=== PATIENT | male | born 1955 | race Caucasian/White ===

== ENCOUNTER 2020-06-05 16:32 | Observation (INO) ==
[2020-06-05 18:21] LABS: Basophils # 0.1 K/mcL (0.0-0.2); Basophils % 0.4 %; Eosinophils # 0.1 K/mcL (0.0-0.6); Eosinophils % 0.9 %; Hematocrit 50.4 % (37.5-50.1); Hemoglobin 16.3 g/dL (12.9-16.9); Immature Granulocytes % 0.8 % (0-4); Lymphocytes # 1.8 K/mcL (0.6-4.6); Lymphocytes % 12.9 %; Mean Corpuscular HGB Conc 32.3 g/dL (31.6-35.5); Mean Corpuscular Hemoglobin 28.8 pg (28.0-33.3); Mean Corpuscular Volume 89.2 fL (83.0-100.0); Mean Platelet Volume 10.4 fL (9.4-12.4); Monocytes # 1.5 K/mcL (0.0-1.3); Monocytes % 10.3 %; Neutrophils # 10.7 K/mcL (1.6-8.9); Platelet Count 228 K/mcL (140-400); Red Blood Count 5.65 M/mcL (4.19-5.50); Red Cell Distribution Width 13.2 % (11.5-14.5); Segmented Neutrophils % 74.7 %; White Blood Count 14.3 K/mcL (4.3-11.1)
[2020-06-05 18:33] LABS: Bacteria,Urine Few per hpf (None-Few); Bilirubin,Urine Negative (Negative); Blood,Urine Moderate (Negative); Clarity,Urine Clear (Clear); Color,Urine Light-Orange (Yellow); Glucose,Urine (UA) >=1000 mg/dL (Normal); Ketones,Urine Trace mg/dL (Negative); Leukocyte Esterase,Urine Negative (Negative); Mucus,Urine Few per lpf (None-Few); Nitrite,Urine Negative (Negative); PH,Urine 5.5 pH Units (5.0-8.0); Protein,Urine 70 mg/dL (Neg-Trace); RBC,Urine 15-30 per hpf (0-3); Specific Gravity,Urine > 1.030 (1.010-1.025); Squamous Epithelial Cell,Urine Few per hpf (None-Few); Urobilinogen,Urine Normal (Normal); WBC,Urine 0-3 per hpf (0-3)
[2020-06-05 18:46] LABS: Alanine Aminotransferase 6 Units/L (7-52); Albumin 4.7 g/dL (3.5-5.7); Albumin/Globulin Ratio 1.5 (1.1-2.2); Alkaline Phosphatase 62 Units/L (34-104); Aspartate Amino Transferase 8 Units/L (13-39); BUN/Creatinine Ratio 19 (6-26); Bilirubin,Direct 0.3 mg/dL (0.0-0.2); Bilirubin,Indirect 1.3 mg/dL (0.0-1.0); Bilirubin,Total 1.6 mg/dL (0.3-1.0); Blood Urea Nitrogen 23 mg/dL (8-23); Carbon Dioxide 25 mEq/L (23-29); Chloride 98 mEq/L (98-107); Globulin 3.1 g/dL (2.4-3.5); Glucose 313 mg/dL (70-105); Lipase 122 Units/L (11-82); Osmolality,Calculated 292 (280-300); Potassium 4.5 mEq/L (3.5-5.1); Sodium 133 mEq/L (136-145); Total Protein 7.8 g/dL (6.4-8.9); eGFR For African Americans > 60 (> 60); eGFR For Non-African Americans > 60 (> 60)
[2020-06-05] MEDS ORDERED: Isovue-370 500 ML BOTTLE IVP ONE (20:57)
[2020-06-05] MEDS ORDERED: 0.9 % Sodium Chloride 1,000 ML IVC ONE (21:04)
[2020-06-05] MEDS ORDERED: Morphine Sulfate 2 MG/ML SYRINGE IVP ONE (21:06)
[2020-06-05] MEDS ORDERED: Ondansetron 4 MG/2 ML VIAL IVP ONE (21:06)
[2020-06-06] MEDS ORDERED: Morphine Sulfate 2 MG/ML SYRINGE IVP ONE (00:32)
[2020-06-06] MEDS: Ringers Solution, Lactated 1,000 ML IVC SCH ×5 (01:23→21:48)
[2020-06-06] MEDS ORDERED: Naloxone 0.4 MG/ML INJ IVP PRN (03:21)
[2020-06-06] MEDS: *HR* HYDROmorphone (PF) 1 MG/ML SYRINGE IVP PRN ×4 (04:00→21:47)
[2020-06-06] MEDS ORDERED: Dextrose Gel 15 GM/37.5 ML TUBE PO PRN ×2 (04:11)
[2020-06-06] MEDS ORDERED: D5% in Water 1,000 ML IVC PRN (04:11)
[2020-06-06] MEDS ORDERED: *HR* Dextrose 50 % in Water (Vial) 50 ML VIAL IVP PRN (04:11)
[2020-06-06] MEDS: Insulin LISPRO 300 UNITS/3 ML VIAL SQ SCH ×4 (04:55→17:58)
[2020-06-06 05:07] LABS: INR 1.4; Prothrombin Time 15.9 Seconds (9.4-12.1)
[2020-06-06 05:10] LABS: Mean Corpuscular Hemoglobin 28.9 pg (28.0-33.3); Mean Corpuscular Volume 90.2 fL (83.0-100.0); Mean Platelet Volume 10.6 fL (9.4-12.4); Platelet Count 199 K/mcL (140-400); Red Blood Count 4.88 M/mcL (4.19-5.50); Red Cell Distribution Width 13.2 % (11.5-14.5); White Blood Count 11.3 K/mcL (4.3-11.1)
[2020-06-06 05:11] LABS: Hemoglobin 14.1 g/dL (12.9-16.9)
[2020-06-06 05:25] LABS: Alanine Aminotransferase 4 Units/L (7-52); Albumin 3.6 g/dL (3.5-5.7); Albumin/Globulin Ratio 1.2 (1.1-2.2); Alkaline Phosphatase 43 Units/L (34-104); Aspartate Amino Transferase 5 Units/L (13-39); BUN/Creatinine Ratio 24 (6-26); Bilirubin,Direct 0.2 mg/dL (0.0-0.2); Bilirubin,Indirect 0.9 mg/dL (0.0-1.0); Bilirubin,Total 1.1 mg/dL (0.3-1.0); Blood Urea Nitrogen 22 mg/dL (8-23); Calcium 8.7 mg/dL (8.6-10.3); Carbon Dioxide 20 mEq/L (23-29); Chloride 102 mEq/L (98-107); Chol/HDL Ratio 3.9 (0-4.9); Cholesterol 116 mg/dL (< 200); Globulin 2.9 g/dL (2.4-3.5); Glucose 271 mg/dL (70-105); HDL Cholesterol 30 mg/dL (40-59); LDL Cholesterol,Calculated 59 mg/dL (< 100); Magnesium 1.6 mg/dL (1.6-2.6); Osmolality,Calculated 289 (280-300); Phosphorous 2.5 mg/dL (2.7-4.5); Potassium 4.2 mEq/L (3.5-5.1); Sodium 133 mEq/L (136-145); Total Protein 6.5 g/dL (6.4-8.9); Triglycerides 134 mg/dL (< 150); eGFR For African Americans > 60 (> 60); eGFR For Non-African Americans > 60 (> 60)
[2020-06-06] MEDS: Ondansetron ODT 4 MG TAB.RAPDIS SL PRN (11:33)
[2020-06-06 13:06] LABS: Estimated Average Glucose 298 mg/dl
[2020-06-07] MEDS: Ringers Solution, Lactated 1,000 ML IVC SCH ×2 (03:14→07:53)
[2020-06-07] MEDS: *HR* HYDROmorphone (PF) 1 MG/ML SYRINGE IVP PRN (03:14)
[2020-06-07 05:59] LABS: Basophils % 0.3 %; Eosinophils # 0.2 K/mcL (0.0-0.6); Hematocrit 38.9 % (37.5-50.1); Immature Granulocytes % 0.6 % (0-4); Lymphocytes # 1.4 K/mcL (0.6-4.6); Lymphocytes % 11.7 %; Mean Corpuscular HGB Conc 31.9 g/dL (31.6-35.5); Mean Corpuscular Hemoglobin 28.8 pg (28.0-33.3); Mean Corpuscular Volume 90.3 fL (83.0-100.0); Mean Platelet Volume 11.4 fL (9.4-12.4); Monocytes # 1.3 K/mcL (0.0-1.3); Monocytes % 11.3 %; Neutrophils # 8.6 K/mcL (1.6-8.9); Platelet Count 155 K/mcL (140-400); Red Blood Count 4.31 M/mcL (4.19-5.50); Red Cell Distribution Width 13.2 % (11.5-14.5); Segmented Neutrophils % 74.1 %; White Blood Count 11.5 K/mcL (4.3-11.1)
[2020-06-07 06:03] LABS: Hemoglobin 12.4 g/dL (12.9-16.9)
[2020-06-07 06:13] LABS: BUN/Creatinine Ratio 21 (6-26); Blood Urea Nitrogen 18 mg/dL (8-23); Calcium 8.6 mg/dL (8.6-10.3); Carbon Dioxide 22 mEq/L (23-29); Chloride 101 mEq/L (98-107); Glucose 205 mg/dL (70-105); Magnesium 1.3 mg/dL (1.6-2.6); Osmolality,Calculated 282 (280-300); Phosphorous 1.9 mg/dL (2.7-4.5); Potassium 4.3 mEq/L (3.5-5.1); Sodium 132 mEq/L (136-145); eGFR For African Americans > 60 (> 60); eGFR For Non-African Americans > 60 (> 60)
[2020-06-07] MEDS: Insulin LISPRO 300 UNITS/3 ML VIAL SQ SCH ×3 (07:56→16:52)
[2020-06-07] MEDS ORDERED: Loratadine 10 MG TABLET PO PRN (08:24)
[2020-06-07] MEDS: *HR* OxyCODONE/APAP 5/325 TABLET PO PRN ×2 (12:34→19:48)
[2020-06-07] MEDS: Aspirin Enteric Coated 81 MG Tablet PO SCH (12:35)
[2020-06-07] MEDS: Apixaban 5 MG TABLET PO SCH ×2 (12:35→19:50)
[2020-06-07] MEDS: Fenofibrate 54 MG TABLET PO SCH (12:36)
[2020-06-07] MEDS: lisinopriL 10 MG TABLET PO SCH (12:36)
[2020-06-07] MEDS: Ondansetron ODT 4 MG TAB.RAPDIS SL PRN (12:37)
[2020-06-07] MEDS: Nicotine 21 MG PATCH.TD24 TD SCH (16:53)
[2020-06-08] MEDS: Nicotine 21 MG PATCH.TD24 TD SCH (07:33)
[2020-06-08] MEDS: *HR* OxyCODONE/APAP 5/325 TABLET PO PRN (07:34)
[2020-06-08] MEDS: Fenofibrate 54 MG TABLET PO SCH (07:34)
[2020-06-08] MEDS: Apixaban 5 MG TABLET PO SCH (07:34)
[2020-06-08] MEDS: Aspirin Enteric Coated 81 MG Tablet PO SCH (07:34)
[2020-06-08] MEDS: lisinopriL 10 MG TABLET PO SCH (07:35)
[2020-06-08 08:08] VITALS: BP 120/73
[2020-06-08] MEDS: Insulin LISPRO 300 UNITS/3 ML VIAL SQ SCH (08:24)
[2020-06-08 08:52] LABS: BUN/Creatinine Ratio 18 (6-26); Blood Urea Nitrogen 14 mg/dL (8-23); Calcium 8.6 mg/dL (8.6-10.3); Carbon Dioxide 20 mEq/L (23-29); Chloride 100 mEq/L (98-107); Glucose 203 mg/dL (70-105); Magnesium 1.6 mg/dL (1.6-2.6); Osmolality,Calculated 282 (280-300); Phosphorous 1.9 mg/dL (2.7-4.5); Potassium 4.1 mEq/L (3.5-5.1); Sodium 133 mEq/L (136-145); eGFR For African Americans > 60 (> 60); eGFR For Non-African Americans > 60 (> 60)
[2020-06-08 08:54] LABS: Basophils # 0.1 K/mcL (0.0-0.2); Basophils % 0.6 %; Eosinophils # 0.1 K/mcL (0.0-0.6); Eosinophils % 1.4 %; Hematocrit 40.4 % (37.5-50.1); Hemoglobin 12.8 g/dL (12.9-16.9); Immature Granulocytes % 0.5 % (0-4); Lymphocytes # 0.9 K/mcL (0.6-4.6); Lymphocytes % 9.1 %; Mean Corpuscular HGB Conc 31.7 g/dL (31.6-35.5); Mean Corpuscular Hemoglobin 27.9 pg (28.0-33.3); Mean Corpuscular Volume 88.2 fL (83.0-100.0); Mean Platelet Volume 11.1 fL (9.4-12.4); Monocytes # 1.1 K/mcL (0.0-1.3); Platelet Count 176 K/mcL (140-400); Red Blood Count 4.58 M/mcL (4.19-5.50); Red Cell Distribution Width 13.1 % (11.5-14.5); Segmented Neutrophils % 77.4 %; White Blood Count 10.3 K/mcL (4.3-11.1)
== END 2020-06-08 11:30 | disposition home or self-care (01) ==
LOC: EMEROOARM 16:32 → 3ANU 16:32
PROVIDERS: ADMIT Internal Medicine; ATTEND Internal Medicine

== ENCOUNTER 2021-01-09 10:12 | Inpatient (IN) ==
[2021-01-09] MEDS ORDERED: CeFAZolin Syr 2,000MG/20 ML 2,000 MG/20 ML SYRINGE IVPB ONE (10:36)
[2021-01-09] MEDS ORDERED: Vancomycin 1,250 MG/262.5 ML IV.SOLN IVPB ONE ×2 (10:36→23:30)
[2021-01-09] MEDS ORDERED: *HR* Propofol 200 MG/20 ML VIAL IVP ONE ×2 (10:41→14:24)
[2021-01-09] MEDS ORDERED: 0.9 % Sodium Chloride 300 ML ONE (10:43)
[2021-01-09] MEDS ORDERED: *HR* Midazolam HCl 2 MG/2 ML VIAL ONE (10:44)
[2021-01-09] MEDS ORDERED: *HR* FentaNYL (PF) 100 MCG/2 ML VIAL ONE ×2 (10:44→14:32)
[2021-01-09] MEDS ORDERED: Ringers Solution, Lactated 1,000 ML IVC SCH (10:45)
[2021-01-09] MEDS ORDERED: Lidocaine -MPF 2% 2 ML VIAL ONE (10:45)
[2021-01-09] MEDS ORDERED: *HR* Succinylcholine 200 MG/10 ML VIAL IVP ONE (10:45)
[2021-01-09] MEDS ORDERED: Ondansetron 4 MG/2 ML VIAL ONE (10:45)
[2021-01-09] MEDS ORDERED: Protamine Sulfate 50 MG/5 ML VIAL IVP ONE (10:46)
[2021-01-09] MEDS ORDERED: Bupivacaine-MPF 0.25% 10 ML VIAL ONE (10:46)
[2021-01-09] MEDS ORDERED: Lidocaine HCL 4 ML Topical Solution (Laryng-O-Jet Kit Sterile Pak) TP ONE (10:47)
[2021-01-09] MEDS ORDERED: Heparin 1,000 UNITS/500 mL 1,000 ML ONE (10:48)
[2021-01-09] MEDS ORDERED: *HR* Remifentanil 2 MG VIAL IVP ONE (10:53)
[2021-01-09] MEDS ORDERED: EPHEDrine 50 MG/ML VIAL ONE (10:58)
[2021-01-09] MEDS ORDERED: Aspirin 81 MG TAB.CHEW PO ONE (11:00)
[2021-01-09] MEDS ORDERED: Ondansetron 4 MG/2 ML VIAL IVP PRN ×2 (11:12→17:01)
[2021-01-09] MEDS ORDERED: Albuterol 2.5 MG/3 ML NEBULIZER IH PRN (11:12)
[2021-01-09] MEDS ORDERED: *HR* HYDROmorphone PF 0.5 MG/0.5 ML SYRINGE IVP PRN (11:12)
[2021-01-09] MEDS ORDERED: Acetaminophen IV 1,000 MG/100 ML BAG IVPB ONE (11:12)
[2021-01-09] MEDS ORDERED: *HR* OxyCODONE Immed Rel 5 MG TABLET PO PRN (11:12)
[2021-01-09] MEDS ORDERED: Heparin 1,000 UNITS/500 mL 0 ML ONE (11:23)
[2021-01-09] MEDS ORDERED: Vancomycin 1,000 MG, Sodium Chloride IRRigation 1,000 ML IR ONE (12:15)
[2021-01-09 12:37] LABS: ABG Base Excess -2 mEq/L (-2 to 3); ABG Chloride 105 mEq/L (98-107); ABG Glucose 94 mg/dL (60-95); ABG HCO3 23 mEq/L (21-27); ABG Ionized Calcium 1.09 mmol/L (1.15-1.35); ABG Oxygen Saturation 100 % (95-98); ABG PCO2 40 mmHg (35-45); ABG PH 7.37 pH Units (7.32-7.45); ABG PO2 522 mmHg (85-104); ABG TCO2 24 mEq/L (20-26)
[2021-01-09] MEDS ORDERED: Albumin Human 5% 12.5 GM/250 ML IV.SOLN ONE (12:54)
[2021-01-09] MEDS ORDERED: *HR* Heparin 5,000 UNIT/ML VIAL ONE (13:24)
[2021-01-09] MEDS ORDERED: 0.9 % Sodium Chloride 1,000 ML IVC SCH (17:01)
[2021-01-09] MEDS ORDERED: Acetaminophen 325 MG TABLET PO PRN (17:01)
[2021-01-09] MEDS ORDERED: Naloxone 0.4 MG/ML INJ IVP PRN (17:01)
[2021-01-09] MEDS ORDERED: [UNRECOGNIZED DRUG - REMARK] PO PRN (17:12)
[2021-01-09] MEDS: *HR* HYDROcodone/Acet 5/325 mg TABLET PO PRN (17:30)
[2021-01-09] MEDS: *HR* Metoprolol 5 MG/5 ML VIAL IVP SCH (17:30)
[2021-01-09] MEDS: *HR* OxyCODONE Immed Rel 5 MG TABLET PO PRN (19:02)
[2021-01-09] MEDS: CeFAZolin 2 GM/120 ML BAG IVPB SCH (20:00)
[2021-01-09] MEDS: *HR* Labetalol 20 MG/4 ML SYRINGE IVP PRN (20:13)
[2021-01-10] MEDS: *HR* HYDROcodone/Acet 5/325 mg TABLET PO PRN ×4 (00:28→19:33)
[2021-01-10] MEDS: *HR* Metoprolol 5 MG/5 ML VIAL IVP SCH ×2 (00:28→06:16)
[2021-01-10] MEDS: *HR* OxyCODONE Immed Rel 5 MG TABLET PO PRN ×4 (01:23→21:08)
[2021-01-10 03:57] LABS: Basophils % 0.3 %; Hematocrit 31.1 % (37.5-50.1); Hemoglobin 9.5 g/dL (12.9-16.9); Immature Granulocytes % 0.5 % (0-4); Lymphocytes # 1.5 K/mcL (0.6-4.6); Lymphocytes % 12.2 %; Mean Corpuscular HGB Conc 30.5 g/dL (31.6-35.5); Mean Corpuscular Hemoglobin 25.1 pg (28.0-33.3); Mean Corpuscular Volume 82.3 fL (83.0-100.0); Monocytes # 1.1 K/mcL (0.0-1.3); Monocytes % 9.1 %; Neutrophils # 9.2 K/mcL (1.6-8.9); Platelet Count 323 K/mcL (140-400); Red Blood Count 3.78 M/mcL (4.19-5.50); Red Cell Distribution Width 18.4 % (11.5-14.5); Segmented Neutrophils % 77.9 %; White Blood Count 11.9 K/mcL (4.3-11.1)
[2021-01-10] MEDS: CeFAZolin 2 GM/120 ML BAG IVPB SCH (03:57)
[2021-01-10 04:17] LABS: BUN/Creatinine Ratio 24 (6-26); Blood Urea Nitrogen 17 mg/dL (8-23); Calcium 8.4 mg/dL (8.6-10.3); Carbon Dioxide 23 mEq/L (23-29); Chloride 104 mEq/L (98-107); Glucose 192 mg/dL (70-105); Osmolality,Calculated 287 (280-300); Sodium 135 mEq/L (136-145); eGFR For African Americans > 60 (> 60); eGFR For Non-African Americans > 60 (> 60)
[2021-01-10] MEDS: *HR* Labetalol 20 MG/4 ML SYRINGE IVP PRN ×2 (04:25→11:49)
[2021-01-10] MEDS ORDERED: *HR* Heparin 5,000 UNIT/ML VIAL SQ SCH (06:00)
[2021-01-10] MEDS: *HR* Heparin 5,000 UNIT/ML VIAL SQ SCH ×2 (06:16→16:49)
[2021-01-10] MEDS: lisinopriL 10 MG TABLET PO SCH (07:30)
[2021-01-10] MEDS: Aspirin Enteric Coated 81 MG Tablet PO SCH (07:30)
[2021-01-10] MEDS: Insulin LISPRO 300 UNITS/3 ML VIAL SUBQ SCH ×3 (11:45→21:08)
[2021-01-10] MEDS: ALPRAZolam 0.25 MG TABLET PO PRN (21:08)
[2021-01-11] MEDS: *HR* HYDROcodone/Acet 5/325 mg TABLET PO PRN ×4 (01:51→23:30)
[2021-01-11] MEDS: *HR* OxyCODONE Immed Rel 5 MG TABLET PO PRN ×3 (03:35→20:11)
[2021-01-11] MEDS: *HR* Heparin 5,000 UNIT/ML VIAL SQ SCH ×2 (05:41→17:50)
[2021-01-11] MEDS: Aspirin Enteric Coated 81 MG Tablet PO SCH (08:53)
[2021-01-11] MEDS: Insulin LISPRO 300 UNITS/3 ML VIAL SUBQ SCH ×4 (08:56→21:31)
[2021-01-11] MEDS: lisinopriL 10 MG TABLET PO SCH (10:40)
[2021-01-11] MEDS: ALPRAZolam 0.25 MG TABLET PO PRN (20:11)
[2021-01-12] MEDS: *HR* OxyCODONE Immed Rel 5 MG TABLET PO PRN ×3 (04:44→21:16)
[2021-01-12] MEDS: *HR* Heparin 5,000 UNIT/ML VIAL SQ SCH ×2 (04:48→18:08)
[2021-01-12] MEDS: Aspirin Enteric Coated 81 MG Tablet PO SCH (08:29)
[2021-01-12] MEDS: *HR* HYDROcodone/Acet 5/325 mg TABLET PO PRN ×2 (08:29→18:15)
[2021-01-12] MEDS: lisinopriL 10 MG TABLET PO SCH (08:29)
[2021-01-12] MEDS: Insulin LISPRO 300 UNITS/3 ML VIAL SUBQ SCH ×4 (08:30→21:12)
[2021-01-12] MEDS: ALPRAZolam 0.25 MG TABLET PO PRN (21:34)
[2021-01-13] MEDS: *HR* HYDROcodone/Acet 5/325 mg TABLET PO PRN ×2 (01:33→11:29)
[2021-01-13] MEDS: *HR* OxyCODONE Immed Rel 5 MG TABLET PO PRN (05:54)
[2021-01-13] MEDS: *HR* Heparin 5,000 UNIT/ML VIAL SQ SCH (05:54)
[2021-01-13] MEDS: lisinopriL 10 MG TABLET PO SCH (07:41)
[2021-01-13] MEDS: Insulin LISPRO 300 UNITS/3 ML VIAL SUBQ SCH ×2 (07:41→11:33)
[2021-01-13] MEDS: Aspirin Enteric Coated 81 MG Tablet PO SCH (07:41)
[2021-01-13 11:26] VITALS: BP 149/90
== END 2021-01-13 15:14 | disposition home health service (06) | DRG 253 ==
LOC: SAMDAY 10:12 → 2NNU 17:00
PROVIDERS: ADMIT Surgery; ATTEND Surgery

== ENCOUNTER 2021-08-27 06:03 | Inpatient (IN) ==
[~2021-08-27 06:03] MED LIST: Vancomycin 1,000 MG, Sodium Chloride IRRigation 1,000 ML IR ONE
[2021-08-27] MEDS ORDERED: CeFAZolin Syr 2,000MG/20 ML 2,000 MG/20 ML SYRINGE IVPB ONE (06:26)
[2021-08-27] MEDS ORDERED: Vancomycin 1,250 MG/262.5 ML IV.SOLN IVPB ONE ×2 (06:26→19:00)
[2021-08-27] MEDS ORDERED: Ringers Solution, Lactated 1,000 ML IVC SCH (06:30)
[2021-08-27] MEDS ORDERED: Heparin 1,000 UNITS/500 mL 0 ML ONE (07:05)
[2021-08-27] MEDS ORDERED: Lidocaine HCL 4 ML Topical Solution (Laryng-O-Jet Kit Sterile Pak) TP ONE (07:06)
[2021-08-27] MEDS ORDERED: *HR* FentaNYL (PF) 100 MCG/2 ML VIAL ONE ×2 (07:07→09:08)
[2021-08-27] MEDS ORDERED: *HR* Propofol 200 MG/20 ML VIAL IVP ONE (07:07)
[2021-08-27] MEDS ORDERED: *HR* Rocuronium Bromide 50 MG/5 ML VIAL ONE ×3 (07:08→08:24)
[2021-08-27] MEDS ORDERED: Ondansetron 4 MG/2 ML VIAL ONE (07:08)
[2021-08-27] MEDS ORDERED: Lidocaine -MPF 2% 5 ML VIAL ONE (07:08)
[2021-08-27] MEDS ORDERED: *HR* Vasopressin 20 UNIT/ML VIAL ONE (07:12)
[2021-08-27] MEDS ORDERED: Albumin Human 5% 12.5 GM/250 ML IV.SOLN ONE (07:12)
[2021-08-27] MEDS ORDERED: *HR* Midazolam HCl 2 MG/2 ML VIAL ONE (07:22)
[2021-08-27] MEDS ORDERED: Protamine Sulfate 50 MG/5 ML VIAL IVP ONE (07:35)
[2021-08-27] MEDS ORDERED: Heparin 1,000 UNITS/500 mL 1,000 ML ONE (07:36)
[2021-08-27] MEDS ORDERED: Ondansetron 4 MG/2 ML VIAL IVP PRN ×2 (07:41→13:00)
[2021-08-27] MEDS ORDERED: *HR* HYDROmorphone PF 0.5 MG/0.5 ML SYRINGE IVP PRN (07:41)
[2021-08-27] MEDS ORDERED: *HR* OxyCODONE Immed Rel 5 MG TABLET PO PRN (07:41)
[2021-08-27] MEDS ORDERED: Vancomycin 1,000 MG, Sodium Chloride IRRigation 1,000 ML IR ONE (07:45)
[2021-08-27] MEDS ORDERED: *HR* Heparin 5,000 UNIT/ML VIAL ONE ×2 (08:22→10:33)
[2021-08-27] MEDS ORDERED: Sugammadex Sodium 200 MG/2 ML VIAL IV ONE (09:18)
[2021-08-27] MEDS ORDERED: *HR* Labetalol 20 MG/4 ML SYRINGE IVP ONE (11:07)
[2021-08-27] MEDS ORDERED: *HR* HYDROcodone/Acet 5/325 mg TABLET PO PRN (13:00)
[2021-08-27] MEDS ORDERED: *HR* Labetalol 20 MG/4 ML SYRINGE IVP PRN (13:00)
[2021-08-27] MEDS ORDERED: Naloxone 0.4 MG/ML INJ IVP PRN (13:00)
[2021-08-27] MEDS ORDERED: Acetaminophen 325 MG TABLET PO PRN (13:00)
[2021-08-27] MEDS: *HR* OxyCODONE Immed Rel 5 MG TABLET PO PRN ×2 (13:48→22:23)
[2021-08-27] MEDS: 0.9 % Sodium Chloride 1,000 ML IVC SCH (13:49)
[2021-08-27] MEDS: CeFAZolin 2 GM/120 ML BAG IVPB SCH (16:39)
[2021-08-27] MEDS: *HR* Metoprolol 5 MG/5 ML VIAL IVP SCH (18:15)
[2021-08-28] MEDS: *HR* Metoprolol 5 MG/5 ML VIAL IVP SCH ×3 (00:06→11:21)
[2021-08-28] MEDS: CeFAZolin 2 GM/120 ML BAG IVPB SCH (00:06)
[2021-08-28 04:31] LABS: Basophils # 0.1 K/mcL (0.0-0.2); Basophils % 0.4 %; Eosinophils % 0.3 %; Hematocrit 28.2 % (37.5-50.1); Immature Granulocytes % 0.4 % (0-4); Lymphocytes # 1.8 K/mcL (0.6-4.6); Lymphocytes % 15.1 %; Mean Corpuscular HGB Conc 32.6 g/dL (31.6-35.5); Mean Corpuscular Hemoglobin 30.2 pg (28.0-33.3); Mean Corpuscular Volume 92.5 fL (83.0-100.0); Mean Platelet Volume 9.4 fL (9.4-12.4); Monocytes # 1.2 K/mcL (0.0-1.3); Neutrophils # 8.8 K/mcL (1.6-8.9); Platelet Count 291 K/mcL (140-400); Red Blood Count 3.05 M/mcL (4.19-5.50); Red Cell Distribution Width 14.4 % (11.5-14.5); Segmented Neutrophils % 73.8 %
[2021-08-28 04:33] LABS: Hemoglobin 9.2 g/dL (12.9-16.9)
[2021-08-28 04:47] LABS: BUN/Creatinine Ratio 19 (6-26); Blood Urea Nitrogen 15 mg/dL (8-23); Carbon Dioxide 26 mEq/L (23-29); Chloride 105 mEq/L (98-107); Glucose 187 mg/dL (70-105); Osmolality,Calculated 290 (280-300); Potassium 3.6 mEq/L (3.5-5.1); Sodium 137 mEq/L (136-145); eGFR For African Americans > 60 (> 60); eGFR For Non-African Americans > 60 (> 60)
[2021-08-28] MEDS: *HR* OxyCODONE Immed Rel 5 MG TABLET PO PRN ×2 (05:39→11:21)
[2021-08-28 07:55] VITALS: TEMP 97.6
[2021-08-28] MEDS: 0.9 % Sodium Chloride 1,000 ML IVC SCH (08:00)
[2021-08-28] MEDS ORDERED: lisinopriL 10 MG TABLET PO SCH (09:00)
[2021-08-28] MEDS ORDERED: Aspirin Enteric Coated 81 MG Tablet PO SCH (09:00)
[2021-08-28] MEDS ORDERED: Loratadine 10 MG TABLET PO SCH (09:00)
[2021-08-28] MEDS ORDERED: *HR* Heparin 5,000 UNIT/ML VIAL SQ SCH ×2 (09:00)
[2021-08-28 11:13] VITALS: BP 158/70; O2SAT 93
[2021-08-28 11:23] VITALS: PULSE 75
== END 2021-08-28 15:38 | disposition home or self-care (01) | DRG 253 ==
LOC: SAMDAY 06:03 → 2NNU 12:52
PROVIDERS: ADMIT Surgery; ATTEND Surgery

== ENCOUNTER 2022-02-19 10:19 | Inpatient (IN) ==
[2022-02-19] MEDS ORDERED: CeFAZolin Syr 2,000MG/20 ML 2,000 MG/20 ML SYRINGE IVPB ONE (10:49)
[2022-02-19] MEDS ORDERED: Ringers Solution, Lactated 1,000 ML IVC SCH (11:00)
[2022-02-19] MEDS ORDERED: Acetaminophen IV 1,000 MG/100 ML BAG IVPB ONE (11:06)
[2022-02-19] MEDS ORDERED: Famotidine 20 MG/2 ML VIAL IVP ONE (11:06)
[2022-02-19] MEDS ORDERED: Heparin 1,000 UNITS/500 mL 500 ML ONE ×2 (11:27→12:01)
[2022-02-19] MEDS ORDERED: Bupivacaine-MPF 0.25% 10 ML VIAL ONE (11:27)
[2022-02-19] MEDS ORDERED: Vancomycin 1,000 MG, Sodium Chloride IRRigation 1,000 ML IR ONE (11:55)
[2022-02-19] MEDS ORDERED: Vancomycin 1,250 MG/262.5 ML IV.SOLN IVPB ONE (12:00)
[2022-02-19] MEDS ORDERED: *HR* FentaNYL (PF) 100 MCG/2 ML VIAL ONE (12:53)
[2022-02-19] MEDS ORDERED: *HR* Rocuronium Bromide 50 MG/5 ML VIAL ONE (15:19)
[2022-02-19] MEDS ORDERED: Sugammadex Sodium 200 MG/2 ML VIAL IV ONE (16:09)
[2022-02-19] MEDS ORDERED: Lidocaine -MPF 2% 5 ML VIAL ONE (16:13)
[2022-02-19] MEDS ORDERED: *HR* HYDROMORPHONE 2 MG/ML VIAL ONE (16:14)
[2022-02-19] MEDS ORDERED: *HR* Dextrose 50 % in Water (Syg) 50 ML SYRINGE IVP PRN (18:03)
[2022-02-19] MEDS ORDERED: Nystatin POWDER 30 GM BOTTLE TP PRN (18:03)
[2022-02-19] MEDS ORDERED: diazePAM 5 MG TABLET PO PRN (18:03)
[2022-02-19] MEDS ORDERED: Ondansetron 4 MG/2 ML VIAL IVP PRN (18:03)
[2022-02-19] MEDS ORDERED: Naloxone 0.4 MG/ML INJ IVP PRN (18:03)
[2022-02-19] MEDS ORDERED: D5% in Water 1,000 ML IVC PRN (18:03)
[2022-02-19] MEDS ORDERED: Acetaminophen 325 MG TABLET PO PRN (18:03)
[2022-02-19] MEDS ORDERED: *HR* Labetalol 20 MG/4 ML SYRINGE IVP PRN (18:03)
[2022-02-19] MEDS ORDERED: Dextrose Gel 15 GM/37.5 ML TUBE PO PRN ×2 (18:03)
[2022-02-19] MEDS ORDERED: 0.9 % Sodium Chloride 1,000 ML IVC SCH (18:03)
[2022-02-19] MEDS: *HR* Metoprolol 5 MG/5 ML VIAL IVP SCH ×2 (18:31→23:26)
[2022-02-19] MEDS: CeFAZolin 2 GM/120 ML BAG IVPB SCH (19:20)
[2022-02-19] MEDS: Insulin LISPRO 300 UNITS/3 ML VIAL SUBQ SCH (19:37)
[2022-02-20] MEDS ORDERED: Vancomycin 1,250 MG/262.5 ML IV.SOLN IVPB ONE
[2022-02-20] MEDS: CeFAZolin 2 GM/120 ML BAG IVPB SCH (02:57)
[2022-02-20 04:57] LABS: Basophils # 0.1 K/mcL (0.0-0.2); Basophils % 0.4 %; Eosinophils # 0.2 K/mcL (0.0-0.6); Eosinophils % 1.4 %; Hematocrit 27.4 % (37.5-50.1); Immature Granulocytes % 0.5 % (0-4); Lymphocytes % 8.3 %; Mean Corpuscular HGB Conc 30.3 g/dL (31.6-35.5); Mean Corpuscular Hemoglobin 26.7 pg (28.0-33.3); Mean Corpuscular Volume 88.1 fL (83.0-100.0); Mean Platelet Volume 9.3 fL (9.4-12.4); Monocytes # 0.9 K/mcL (0.0-1.3); Monocytes % 7.5 %; Neutrophils # 9.6 K/mcL (1.6-8.9); Platelet Count 405 K/mcL (140-400); Red Blood Count 3.11 M/mcL (4.19-5.50); Red Cell Distribution Width 15.2 % (11.5-14.5); Segmented Neutrophils % 81.9 %; White Blood Count 11.8 K/mcL (4.3-11.1)
[2022-02-20 04:58] LABS: Hemoglobin 8.3 g/dL (12.9-16.9)
[2022-02-20 05:11] LABS: BUN/Creatinine Ratio 18 (6-26); Blood Urea Nitrogen 15 mg/dL (8-23); Calcium 7.9 mg/dL (8.6-10.3); Carbon Dioxide 26 mEq/L (23-29); Chloride 105 mEq/L (98-107); Glucose 120 mg/dL (70-105); Osmolality,Calculated 286 (280-300); Potassium 4.2 mEq/L (3.5-5.1); Sodium 137 mEq/L (136-145); eGFR For African Americans > 60 (> 60); eGFR For Non-African Americans > 60 (> 60)
[2022-02-20] MEDS ORDERED: *HR* Heparin 5,000 UNIT/ML VIAL SQ SCH (06:00)
[2022-02-20] MEDS: *HR* Metoprolol 5 MG/5 ML VIAL IVP SCH ×4 (06:20→23:47)
[2022-02-20] MEDS: *HR* HYDROcodone/Acet 5/325 mg TABLET PO PRN ×2 (06:23→17:00)
[2022-02-20] MEDS: *HR* Heparin 5,000 UNIT/ML VIAL SQ SCH ×2 (06:23→17:01)
[2022-02-20] MEDS: Insulin LISPRO 300 UNITS/3 ML VIAL SUBQ SCH ×4 (07:26→20:47)
[2022-02-20] MEDS: Aspirin Enteric Coated 81 MG Tablet PO SCH (08:39)
[2022-02-20] MEDS: *HR* OxyCODONE Immed Rel 5 MG TABLET PO PRN ×2 (08:39→20:55)
[2022-02-20] MEDS: Loratadine/Pseudophed (12 HR) 1 EACH TABLET PO SCH (08:40)
[2022-02-20] MEDS: lisinopriL 10 MG TABLET PO SCH (08:41)
[2022-02-20] MEDS ORDERED: Bisacodyl 10 MG RECTAL SUPPOSITORY RC PRN (10:09)
[2022-02-20] MEDS ORDERED: Gadolinium Contrast Agent (WT Based) IV PRN (15:03)
[2022-02-20 16:46] LABS: C-Reactive Protein 90 mg/L (Less than 10)
[2022-02-21 02:11] LABS: Basophils # 0.1 K/mcL (0.0-0.2); Basophils % 0.5 %; Eosinophils # 0.5 K/mcL (0.0-0.6); Eosinophils % 4.4 %; Hematocrit 26.7 % (37.5-50.1); Hemoglobin 8.3 g/dL (12.9-16.9); Immature Granulocytes % 0.5 % (0-4); Lymphocytes # 1.5 K/mcL (0.6-4.6); Mean Corpuscular HGB Conc 31.1 g/dL (31.6-35.5); Mean Corpuscular Hemoglobin 27.2 pg (28.0-33.3); Mean Corpuscular Volume 87.5 fL (83.0-100.0); Mean Platelet Volume 9.5 fL (9.4-12.4); Monocytes # 1.3 K/mcL (0.0-1.3); Neutrophils # 7.2 K/mcL (1.6-8.9); Platelet Count 405 K/mcL (140-400); Red Blood Count 3.05 M/mcL (4.19-5.50); Red Cell Distribution Width 15.4 % (11.5-14.5); Segmented Neutrophils % 68.6 %; White Blood Count 10.5 K/mcL (4.3-11.1)
[2022-02-21 02:24] LABS: BUN/Creatinine Ratio 14 (6-26); Blood Urea Nitrogen 10 mg/dL (8-23); Calcium 8.3 mg/dL (8.6-10.3); Carbon Dioxide 25 mEq/L (23-29); Chloride 102 mEq/L (98-107); Glucose 166 mg/dL (70-105); Osmolality,Calculated 283 (280-300); Potassium 3.6 mEq/L (3.5-5.1); Sodium 135 mEq/L (136-145); eGFR For African Americans > 60 (> 60); eGFR For Non-African Americans > 60 (> 60)
[2022-02-21] MEDS: *HR* Heparin 5,000 UNIT/ML VIAL SQ SCH (06:16)
[2022-02-21] MEDS: *HR* Metoprolol 5 MG/5 ML VIAL IVP SCH ×2 (06:17→11:55)
[2022-02-21] MEDS: *HR* OxyCODONE Immed Rel 5 MG TABLET PO PRN (06:17)
[2022-02-21] MEDS: lisinopriL 10 MG TABLET PO SCH (07:34)
[2022-02-21] MEDS: Aspirin Enteric Coated 81 MG Tablet PO SCH (07:34)
[2022-02-21] MEDS: Loratadine/Pseudophed (12 HR) 1 EACH TABLET PO SCH (07:34)
[2022-02-21] MEDS: *HR* HYDROcodone/Acet 5/325 mg TABLET PO PRN (08:34)
[2022-02-21] MEDS: Insulin LISPRO 300 UNITS/3 ML VIAL SUBQ SCH ×2 (08:34→11:55)
[2022-02-21 11:44] VITALS: BP 137/106; PULSE 81; TEMP 98.7; O2SAT 100
== END 2022-02-21 13:25 | disposition home or self-care (01) | DRG 253 ==
LOC: SAMDAY 10:19 → 2NNU 12:15
PROVIDERS: ADMIT Surgery; ATTEND Surgery

== ENCOUNTER 2022-03-22 09:57 | Inpatient (IN) ==
[2022-03-22] MEDS ORDERED: Vancomycin 1,250 MG/262.5 ML IV.SOLN IVPB ONE (10:46)
[2022-03-22] MEDS ORDERED: 0.9 % Sodium Chloride 1,000 ML IVC ONE (10:46)
[2022-03-22 11:11] LABS: Basophils # 0.1 K/mcL (0.0-0.2); Basophils % 0.4 %; Eosinophils % 0.2 %; Hematocrit 31.7 % (37.5-50.1); Hemoglobin 9.4 g/dL (12.9-16.9); Immature Granulocytes % 0.4 % (0-4); Lymphocytes # 1.4 K/mcL (0.6-4.6); Lymphocytes % 7.3 %; Mean Corpuscular HGB Conc 29.7 g/dL (31.6-35.5); Mean Corpuscular Hemoglobin 24.4 pg (28.0-33.3); Mean Corpuscular Volume 82.3 fL (83.0-100.0); Mean Platelet Volume 9.6 fL (9.4-12.4); Monocytes # 1.2 K/mcL (0.0-1.3); Monocytes % 6.3 %; Neutrophils # 16.4 K/mcL (1.6-8.9); Platelet Count 697 K/mcL (140-400); Red Blood Count 3.85 M/mcL (4.19-5.50); Red Cell Distribution Width 15.7 % (11.5-14.5); Segmented Neutrophils % 85.4 %; White Blood Count 19.2 K/mcL (4.3-11.1)
[2022-03-22 11:19] LABS: INR 1.5; Prothrombin Time 16.3 Seconds (9.4-12.1)
[2022-03-22 11:21] LABS: Activated Partial Thrombo Time 33.1 Seconds (26.0-36.0)
[2022-03-22 11:26] LABS: Acetaminophen < 10 mcg/mL (10-20); Alanine Aminotransferase 44 Units/L (7-52); Albumin 3.6 g/dL (3.5-5.7); Albumin/Globulin Ratio 0.7 (1.1-2.2); Alkaline Phosphatase 156 Units/L (34-104); Aspartate Amino Transferase 45 Units/L (13-39); BUN/Creatinine Ratio 27 (6-26); Bilirubin,Direct 0.1 mg/dL (0.0-0.2); Bilirubin,Indirect 0.9 mg/dL (0.0-1.0); Blood Urea Nitrogen 29 mg/dL (8-23); Calcium 9.2 mg/dL (8.6-10.3); Carbon Dioxide 25 mEq/L (23-29); Chloride 99 mEq/L (98-107); Creatine Kinase 39 Units/L (30-223); Globulin 4.9 g/dL (2.4-3.5); Glucose 177 mg/dL (70-105); Magnesium 2.1 mg/dL (1.6-2.6); Osmolality,Calculated 288 (280-300); Phosphorous 1.7 mg/dL (2.7-4.5); Potassium 4.1 mEq/L (3.5-5.1); Salicylate < 2.5 mg/dL (15.0-30.0); Sodium 134 mEq/L (136-145); Total Protein 8.5 g/dL (6.4-8.9); Troponin I < 0.03 ng/mL (< 0.04)
[2022-03-22] MEDS ORDERED: Naloxone 0.4 MG/ML INJ IVP PRN (12:25)
[2022-03-22] MEDS ORDERED: *HR* HYDROcodone/Acet 5/325 mg TABLET PO PRN (12:27)
[2022-03-22] MEDS ORDERED: Ondansetron 4 MG/2 ML VIAL IVP PRN (12:27)
[2022-03-22] MEDS ORDERED: D5% in Water 1,000 ML IVC PRN (12:30)
[2022-03-22] MEDS ORDERED: 0.9 % Sodium Chloride 1,000 ML IVC SCH (12:30)
[2022-03-22] MEDS ORDERED: Dextrose Gel 15 GM/37.5 ML TUBE PO PRN ×2 (12:30)
[2022-03-22] MEDS ORDERED: *HR* Dextrose 50 % in Water (Syg) 50 ML SYRINGE IVP PRN (12:30)
[2022-03-22] MEDS ORDERED: Iopamidol - 370 500 ML MLS IVP ONE (12:48)
[2022-03-22] MEDS ORDERED: *HR* Heparin 5,000 UNIT/ML VIAL IVP ONE (12:48)
[2022-03-22] MEDS ORDERED: *HR* Heparin 5,000 UNIT/ML VIAL IVP PRN (12:48)
[2022-03-22 13:40] LABS: Bacteria,Urine Few per hpf (None-Few); Bilirubin,Urine Negative (Negative); Blood,Urine Moderate (Negative); Clarity,Urine Clear (Clear); Color,Urine Yellow (Yellow); Glucose,Urine (UA) 100 mg/dL (Normal); Granular Casts,Urine Few per lpf (None Seen); Hyaline Casts,Urine Few per lpf (None Seen); Ketones,Urine 10 mg/dL (Negative); Leukocyte Esterase,Urine Negative (Negative); Mucus,Urine Few per lpf (None-Few); Nitrite,Urine Negative (Negative); Protein,Urine 200 mg/dL (Neg-Trace); Specific Gravity,Urine 1.025 (1.010-1.025); Squamous Epithelial Cell,Urine Few per hpf (None-Few); WBC,Urine 0-3 per hpf (0-3)
[2022-03-22] MEDS: 0.9 % Sodium Chloride 1,000 ML IVC SCH (16:52)
[2022-03-22] MEDS: Piperacillin/Tazobactam 3.375 GM in 0.9 % Sodium Chloride Mini Bag 100 ML IVPB SCH (16:59)
[2022-03-22 17:13] LABS: Hematocrit 28.6 % (37.5-50.1); Hemoglobin 8.5 g/dL (12.9-16.9); Mean Corpuscular HGB Conc 29.7 g/dL (31.6-35.5); Mean Corpuscular Hemoglobin 24.5 pg (28.0-33.3); Mean Corpuscular Volume 82.4 fL (83.0-100.0); Mean Platelet Volume 9.5 fL (9.4-12.4); Platelet Count 525 K/mcL (140-400); Red Blood Count 3.47 M/mcL (4.19-5.50); Red Cell Distribution Width 15.6 % (11.5-14.5); White Blood Count 14.8 K/mcL (4.3-11.1)
[2022-03-22] MEDS: Insulin LISPRO 300 UNITS/3 ML VIAL SUBQ SCH (17:24)
[2022-03-22 17:29] LABS: Heparin anti-factor XA UFH < 0.04 IU/mL (0.30-0.70); INR 1.4; Prothrombin Time 15.7 Seconds (9.4-12.1)
[2022-03-22] MEDS: *HR* OxyCODONE Immed Rel 5 MG TABLET PO PRN (18:22)
[2022-03-22] MEDS: Heparin 25,000UNIT/250ML 1/2NS 25,000 UNIT/250 ML IV.SOLN IVC SCH (19:54)
[2022-03-22] MEDS: Insulin DETEMIR 100 UNIT/ML X5UNITS SUBQ SCH (23:13)
[2022-03-22] MEDS: Vancomycin 1,250 MG/262.5 ML IV.SOLN IVPB SCH (23:32)
[2022-03-23] MEDS: *HR* OxyCODONE Immed Rel 5 MG TABLET PO PRN (01:38)
[2022-03-23] MEDS: 0.9 % Sodium Chloride 1,000 ML IVC SCH (04:14)
[2022-03-23 04:48] LABS: Basophils # 0.1 K/mcL (0.0-0.2); Basophils % 0.6 %; Eosinophils # 0.2 K/mcL (0.0-0.6); Eosinophils % 1.5 %; Hematocrit 30.5 % (37.5-50.1); Hemoglobin 8.9 g/dL (12.9-16.9); Immature Granulocytes % 0.5 % (0-4); Lymphocytes # 1.8 K/mcL (0.6-4.6); Lymphocytes % 12.6 %; Mean Corpuscular HGB Conc 29.2 g/dL (31.6-35.5); Mean Corpuscular Hemoglobin 24.6 pg (28.0-33.3); Mean Corpuscular Volume 84.3 fL (83.0-100.0); Mean Platelet Volume 10.3 fL (9.4-12.4); Monocytes % 7.2 %; Neutrophils # 11.1 K/mcL (1.6-8.9); Platelet Count 494 K/mcL (140-400); Red Blood Count 3.62 M/mcL (4.19-5.50); Red Cell Distribution Width 15.5 % (11.5-14.5); Segmented Neutrophils % 77.6 %; White Blood Count 14.3 K/mcL (4.3-11.1)
[2022-03-23 05:03] LABS: BUN/Creatinine Ratio 26 (6-26); Blood Urea Nitrogen 20 mg/dL (8-23); Calcium 8.3 mg/dL (8.6-10.3); Carbon Dioxide 23 mEq/L (23-29); Chloride 103 mEq/L (98-107); Glucose 161 mg/dL (70-105); Magnesium 1.9 mg/dL (1.6-2.6); Osmolality,Calculated 288 (280-300); Phosphorous 2.3 mg/dL (2.7-4.5); Sodium 136 mEq/L (136-145)
[2022-03-23] MEDS ORDERED: *HR* Enoxaparin 40 MG/0.4 ML SYRINGE SQ SCH (06:00)
[2022-03-23] MEDS: Insulin DETEMIR 100 UNIT/ML X5UNITS SUBQ SCH ×2 (08:57→19:46)
[2022-03-23] MEDS: Insulin LISPRO 300 UNITS/3 ML VIAL SUBQ SCH ×3 (09:05→19:46)
[2022-03-23] MEDS: Piperacillin/Tazobactam 3.375 GM in 0.9 % Sodium Chloride Mini Bag 100 ML IVPB SCH ×4 (09:35→23:41)
[2022-03-23] MEDS: Vancomycin 1,250 MG/262.5 ML IV.SOLN IVPB SCH (12:25)
[2022-03-23] MEDS: Heparin 25,000UNIT/250ML 1/2NS 25,000 UNIT/250 ML IV.SOLN IVC SCH (21:12)
[2022-03-24 02:13] LABS: Basophils # 0.1 K/mcL (0.0-0.2); Basophils % 0.5 %; Eosinophils # 0.1 K/mcL (0.0-0.6); Eosinophils % 0.8 %; Hemoglobin 7.8 g/dL (12.9-16.9); Immature Granulocytes % 0.4 % (0-4); Lymphocytes # 1.2 K/mcL (0.6-4.6); Lymphocytes % 8.8 %; Mean Corpuscular Hemoglobin 24.8 pg (28.0-33.3); Mean Corpuscular Volume 82.8 fL (83.0-100.0); Mean Platelet Volume 9.6 fL (9.4-12.4); Monocytes # 1.1 K/mcL (0.0-1.3); Monocytes % 7.9 %; Neutrophils # 11.5 K/mcL (1.6-8.9); Platelet Count 458 K/mcL (140-400); Red Blood Count 3.14 M/mcL (4.19-5.50); Red Cell Distribution Width 15.5 % (11.5-14.5); Segmented Neutrophils % 81.6 %; White Blood Count 14.1 K/mcL (4.3-11.1)
[2022-03-24 02:25] LABS: BUN/Creatinine Ratio 21 (6-26); Blood Urea Nitrogen 15 mg/dL (8-23); Calcium 8.2 mg/dL (8.6-10.3); Carbon Dioxide 25 mEq/L (23-29); Chloride 106 mEq/L (98-107); Glucose 106 mg/dL (70-105); Magnesium 1.8 mg/dL (1.6-2.6); Osmolality,Calculated 287 (280-300); Phosphorous 2.8 mg/dL (2.7-4.5); Potassium 3.6 mEq/L (3.5-5.1); Sodium 138 mEq/L (136-145); Vancomycin,Trough 17 mcg/mL (5-10)
[2022-03-24] MEDS: *HR* Heparin 5,000 UNIT/ML VIAL IVP PRN ×2 (03:04→13:30)
[2022-03-24] MEDS: *HR* OxyCODONE Immed Rel 5 MG TABLET PO PRN (08:51)
[2022-03-24] MEDS: Piperacillin/Tazobactam 3.375 GM in 0.9 % Sodium Chloride Mini Bag 100 ML IVPB SCH ×3 (08:53→23:34)
[2022-03-24] MEDS: Insulin LISPRO 300 UNITS/3 ML VIAL SUBQ SCH ×3 (08:54→16:58)
[2022-03-24] MEDS ORDERED: *HR* OxyCODONE Immed Rel 5 MG TABLET PO PRN (09:17)
[2022-03-24] MEDS ORDERED: diazePAM 5 MG TABLET PO PRN (09:18)
[2022-03-24] MEDS: Loratadine 10 MG TABLET PO SCH (12:21)
[2022-03-24] MEDS: Pregabalin 75 MG CAPSULE PO SCH ×2 (12:22→20:10)
[2022-03-24] MEDS: lisinopriL 10 MG TABLET PO SCH (12:22)
[2022-03-24] MEDS: Heparin 25,000UNIT/250ML 1/2NS 25,000 UNIT/250 ML IV.SOLN IVC SCH (13:26)
[2022-03-24] MEDS: *HR* Heparin 5,000 UNIT/ML VIAL SQ SCH (17:13)
[2022-03-24] MEDS ORDERED: Insulin DETEMIR 100 UNIT/ML X5UNITS SUBQ SCH (21:00)
[2022-03-25] MEDS: *HR* Heparin 5,000 UNIT/ML VIAL SQ SCH ×3 (05:30→17:52)
[2022-03-25] MEDS: lisinopriL 10 MG TABLET PO SCH (07:36)
[2022-03-25] MEDS: Piperacillin/Tazobactam 3.375 GM in 0.9 % Sodium Chloride Mini Bag 100 ML IVPB SCH (08:18)
[2022-03-25] MEDS: Loratadine 10 MG TABLET PO SCH (08:19)
[2022-03-25] MEDS: Pregabalin 75 MG CAPSULE PO SCH ×2 (08:19→21:48)
[2022-03-25] MEDS: Insulin LISPRO 300 UNITS/3 ML VIAL SUBQ SCH ×3 (08:39→17:25)
[2022-03-25] MEDS ORDERED: levoFLOXacin 750 MG/150 ML 750 MG/150 ML BAG IVPB SCH (09:00)
[2022-03-25] MEDS ORDERED: DAPTOmycin 500 MG in 0.9 % Sodium Chloride 100 ML IVPB SCH (10:00)
[2022-03-25 11:27] LABS: Basophils % 0.3 %; Eosinophils # 0.1 K/mcL (0.0-0.6); Eosinophils % 0.8 %; Hematocrit 27.8 % (37.5-50.1); Hemoglobin 8.3 g/dL (12.9-16.9); Immature Granulocytes % 0.5 % (0-4); Mean Corpuscular HGB Conc 29.9 g/dL (31.6-35.5); Mean Corpuscular Hemoglobin 24.7 pg (28.0-33.3); Mean Corpuscular Volume 82.7 fL (83.0-100.0); Mean Platelet Volume 9.6 fL (9.4-12.4); Monocytes # 0.8 K/mcL (0.0-1.3); Monocytes % 7.1 %; Neutrophils # 9.6 K/mcL (1.6-8.9); Platelet Count 425 K/mcL (140-400); Red Blood Count 3.36 M/mcL (4.19-5.50); Red Cell Distribution Width 15.4 % (11.5-14.5); Segmented Neutrophils % 82.3 %; White Blood Count 11.6 K/mcL (4.3-11.1)
[2022-03-25 11:47] LABS: BUN/Creatinine Ratio 18 (6-26); Blood Urea Nitrogen 12 mg/dL (8-23); Calcium 8.2 mg/dL (8.6-10.3); Carbon Dioxide 24 mEq/L (23-29); Chloride 105 mEq/L (98-107); Glucose 80 mg/dL (70-105); Magnesium 1.8 mg/dL (1.6-2.6); Osmolality,Calculated 285 (280-300); Phosphorous 2.9 mg/dL (2.7-4.5); Potassium 3.7 mEq/L (3.5-5.1); Sodium 138 mEq/L (136-145)
[2022-03-25] MEDS ORDERED: Bupivacaine/Clonidine Syringe 20 ML, Syringe LUER-LOK 1 EACH TP ONE (12:15)
[2022-03-25] MEDS ORDERED: metroNIDAZOLE 500 MG TABLET PO SCH (15:00)
[2022-03-25] MEDS ORDERED: Cefepime HCl 2,000 MG in 0.9 % Sodium Chloride Mini Bag 100 ML IVPB SCH (16:00)
[2022-03-25] MEDS ORDERED: D5% in Water 1,000 ML IVC PRN (18:11)
[2022-03-25] MEDS ORDERED: *HR* Dextrose 50 % in Water (Syg) 50 ML SYRINGE IVP PRN (18:11)
[2022-03-25] MEDS ORDERED: Ondansetron 4 MG/2 ML VIAL IVP PRN (18:11)
[2022-03-25] MEDS ORDERED: Naloxone 0.4 MG/ML INJ IVP PRN (18:11)
[2022-03-25] MEDS ORDERED: Dextrose Gel 15 GM/37.5 ML TUBE PO PRN ×2 (18:11)
[2022-03-25] MEDS: Insulin DETEMIR 100 UNIT/ML X5UNITS SUBQ SCH (21:48)
[2022-03-25] MEDS: metroNIDAZOLE 500 MG TABLET PO SCH (21:48)
[2022-03-25] MEDS: Cefepime HCl 2,000 MG in 0.9 % Sodium Chloride Mini Bag 100 ML IVPB SCH (23:43)
[2022-03-26] MEDS: *HR* OxyCODONE Immed Rel 5 MG TABLET PO PRN (05:30)
[2022-03-26] MEDS: *HR* Heparin 5,000 UNIT/ML VIAL SQ SCH ×2 (05:31→16:14)
[2022-03-26] MEDS: lisinopriL 10 MG TABLET PO SCH (08:17)
[2022-03-26] MEDS: metroNIDAZOLE 500 MG TABLET PO SCH ×3 (08:17→21:24)
[2022-03-26] MEDS: Metoprolol XL (24 HR) Succ 25 MG TAB.ER.24H PO SCH (08:17)
[2022-03-26] MEDS: Pregabalin 75 MG CAPSULE PO SCH ×2 (08:17→21:24)
[2022-03-26] MEDS: Loratadine 10 MG TABLET PO SCH (08:17)
[2022-03-26] MEDS: Cefepime HCl 2,000 MG in 0.9 % Sodium Chloride Mini Bag 100 ML IVPB SCH ×2 (08:18→14:24)
[2022-03-26] MEDS: Insulin LISPRO 300 UNITS/3 ML VIAL SUBQ SCH ×3 (08:19→16:15)
[2022-03-26] MEDS ORDERED: Metoprolol XL (24 HR) Succ 25 MG TAB.ER.24H PO SCH (09:00)
[2022-03-26] MEDS: DAPTOmycin 500 MG in 0.9 % Sodium Chloride 100 ML IVPB SCH (11:26)
[2022-03-26 14:31] LABS: Basophils # 0.1 K/mcL (0.0-0.2); Basophils % 0.4 %; Eosinophils # 0.1 K/mcL (0.0-0.6); Eosinophils % 0.7 %; Hematocrit 28.4 % (37.5-50.1); Hemoglobin 8.7 g/dL (12.9-16.9); Immature Granulocytes % 0.7 % (0-4); Lymphocytes # 1.2 K/mcL (0.6-4.6); Lymphocytes % 10.3 %; Mean Corpuscular HGB Conc 30.6 g/dL (31.6-35.5); Mean Corpuscular Hemoglobin 24.6 pg (28.0-33.3); Mean Corpuscular Volume 80.2 fL (83.0-100.0); Mean Platelet Volume 9.6 fL (9.4-12.4); Monocytes # 0.9 K/mcL (0.0-1.3); Monocytes % 8.4 %; Neutrophils # 8.9 K/mcL (1.6-8.9); Platelet Count 428 K/mcL (140-400); Red Blood Count 3.54 M/mcL (4.19-5.50); Red Cell Distribution Width 15.3 % (11.5-14.5); Segmented Neutrophils % 79.5 %; White Blood Count 11.2 K/mcL (4.3-11.1)
[2022-03-26 14:46] LABS: BUN/Creatinine Ratio 19 (6-26); Blood Urea Nitrogen 14 mg/dL (8-23); Calcium 7.9 mg/dL (8.6-10.3); Carbon Dioxide 23 mEq/L (23-29); Chloride 100 mEq/L (98-107); Glucose 241 mg/dL (70-105); Magnesium 1.7 mg/dL (1.6-2.6); Osmolality,Calculated 284 (280-300); Phosphorous 2.8 mg/dL (2.7-4.5); Potassium 3.5 mEq/L (3.5-5.1); Sodium 133 mEq/L (136-145)
[2022-03-26] MEDS: Insulin DETEMIR 100 UNIT/ML X5UNITS SUBQ SCH (21:24)
[2022-03-27] MEDS: Cefepime HCl 2,000 MG in 0.9 % Sodium Chloride Mini Bag 100 ML IVPB SCH ×4 (01:04→23:22)
[2022-03-27] MEDS: *HR* Heparin 5,000 UNIT/ML VIAL SQ SCH ×3 (05:48→16:44)
[2022-03-27] MEDS: Insulin LISPRO 300 UNITS/3 ML VIAL SUBQ SCH ×3 (08:41→16:44)
[2022-03-27] MEDS: lisinopriL 10 MG TABLET PO SCH (08:42)
[2022-03-27] MEDS: metroNIDAZOLE 500 MG TABLET PO SCH ×3 (08:43→20:01)
[2022-03-27] MEDS: Loratadine 10 MG TABLET PO SCH (08:44)
[2022-03-27] MEDS: Pregabalin 75 MG CAPSULE PO SCH ×2 (08:44→20:01)
[2022-03-27] MEDS: Metoprolol XL (24 HR) Succ 25 MG TAB.ER.24H PO SCH (08:44)
[2022-03-27 10:33] LABS: Basophils # 0.1 K/mcL (0.0-0.2); Basophils % 0.5 %; Eosinophils # 0.1 K/mcL (0.0-0.6); Eosinophils % 0.6 %; Hematocrit 33.4 % (37.5-50.1); Hemoglobin 9.8 g/dL (12.9-16.9); Immature Granulocytes % 0.5 % (0-4); Lymphocytes # 1.1 K/mcL (0.6-4.6); Lymphocytes % 7.9 %; Mean Corpuscular HGB Conc 29.3 g/dL (31.6-35.5); Mean Corpuscular Hemoglobin 23.8 pg (28.0-33.3); Mean Corpuscular Volume 81.1 fL (83.0-100.0); Mean Platelet Volume 9.7 fL (9.4-12.4); Monocytes # 0.9 K/mcL (0.0-1.3); Monocytes % 6.2 %; Neutrophils # 11.9 K/mcL (1.6-8.9); Platelet Count 517 K/mcL (140-400); Red Blood Count 4.12 M/mcL (4.19-5.50); Red Cell Distribution Width 15.4 % (11.5-14.5); Segmented Neutrophils % 84.3 %; White Blood Count 14.1 K/mcL (4.3-11.1)
[2022-03-27 10:52] LABS: BUN/Creatinine Ratio 18 (6-26); Blood Urea Nitrogen 12 mg/dL (8-23); Calcium 8.4 mg/dL (8.6-10.3); Carbon Dioxide 25 mEq/L (23-29); Chloride 100 mEq/L (98-107); Glucose 182 mg/dL (70-105); Magnesium 1.8 mg/dL (1.6-2.6); Osmolality,Calculated 282 (280-300); Phosphorous 2.2 mg/dL (2.7-4.5); Potassium 3.3 mEq/L (3.5-5.1); Sodium 134 mEq/L (136-145)
[2022-03-27] MEDS: DAPTOmycin 500 MG in 0.9 % Sodium Chloride 100 ML IVPB SCH (11:02)
[2022-03-27] MEDS ORDERED: Metoprolol XL (24 HR) Succ 25 MG TAB.ER.24H PO ONE (12:45)
[2022-03-27] MEDS ORDERED: *HR* Promethazine 25 MG/ML VIAL IM ONE (14:40)
[2022-03-27] MEDS: *HR* OxyCODONE Immed Rel 5 MG TABLET PO PRN (20:01)
[2022-03-27] MEDS: diazePAM 5 MG TABLET PO PRN (20:01)
[2022-03-27] MEDS: Insulin DETEMIR 100 UNIT/ML X5UNITS SUBQ SCH (20:02)
[2022-03-28] MEDS: *HR* Heparin 5,000 UNIT/ML VIAL SQ SCH ×2 (06:37→18:16)
[2022-03-28] MEDS: Pregabalin 75 MG CAPSULE PO SCH ×2 (08:59→20:23)
[2022-03-28] MEDS: metroNIDAZOLE 500 MG TABLET PO SCH ×3 (08:59→20:29)
[2022-03-28] MEDS: *HR* OxyCODONE Immed Rel 5 MG TABLET PO PRN ×3 (08:59→22:29)
[2022-03-28] MEDS: lisinopriL 10 MG TABLET PO SCH (08:59)
[2022-03-28] MEDS: Loratadine 10 MG TABLET PO SCH (08:59)
[2022-03-28] MEDS: Cefepime HCl 2,000 MG in 0.9 % Sodium Chloride Mini Bag 100 ML IVPB SCH ×2 (09:00→18:15)
[2022-03-28] MEDS: Insulin LISPRO 300 UNITS/3 ML VIAL SUBQ SCH ×3 (09:01→17:55)
[2022-03-28] MEDS: Metoprolol XL (24 HR) Succ 25 MG TAB.ER.24H PO SCH (09:03)
[2022-03-28] MEDS ORDERED: *HR* HYDROmorphone (PF) 1 MG/ML SYRINGE IVP ONE (11:54)
[2022-03-28] MEDS: DAPTOmycin 500 MG in 0.9 % Sodium Chloride 100 ML IVPB SCH (12:07)
[2022-03-28] MEDS: Insulin DETEMIR 100 UNIT/ML X5UNITS SUBQ SCH (22:31)
[2022-03-29] MEDS: Cefepime HCl 2,000 MG in 0.9 % Sodium Chloride Mini Bag 100 ML IVPB SCH ×3 (00:50→15:05)
[2022-03-29] MEDS: *HR* Heparin 5,000 UNIT/ML VIAL SQ SCH ×2 (05:58→18:56)
[2022-03-29] MEDS: *HR* OxyCODONE Immed Rel 5 MG TABLET PO PRN ×3 (06:03→22:00)
[2022-03-29] MEDS: lisinopriL 10 MG TABLET PO SCH (10:35)
[2022-03-29] MEDS: Loratadine 10 MG TABLET PO SCH ×2 (10:35→10:45)
[2022-03-29] MEDS: metroNIDAZOLE 500 MG TABLET PO SCH ×3 (10:35→22:00)
[2022-03-29] MEDS: Pregabalin 75 MG CAPSULE PO SCH ×3 (10:35→22:00)
[2022-03-29] MEDS: Insulin LISPRO 300 UNITS/3 ML VIAL SUBQ SCH ×3 (10:36→18:20)
[2022-03-29] MEDS: Metoprolol XL (24 HR) Succ 25 MG TAB.ER.24H PO SCH (10:41)
[2022-03-29] MEDS: DAPTOmycin 500 MG in 0.9 % Sodium Chloride 100 ML IVPB SCH (11:44)
[2022-03-29] MEDS: diazePAM 5 MG TABLET PO PRN (22:00)
[2022-03-29] MEDS: Insulin DETEMIR 100 UNIT/ML X5UNITS SUBQ SCH (22:02)
[2022-03-30] MEDS: Cefepime HCl 2,000 MG in 0.9 % Sodium Chloride Mini Bag 100 ML IVPB SCH ×3 (00:48→17:37)
[2022-03-30 04:32] LABS: Basophils # 0.1 K/mcL (0.0-0.2); Basophils % 0.6 %; Eosinophils # 0.3 K/mcL (0.0-0.6); Eosinophils % 2.9 %; Hematocrit 28.1 % (37.5-50.1); Hemoglobin 8.4 g/dL (12.9-16.9); Immature Granulocytes % 0.3 % (0-4); Lymphocytes # 1.5 K/mcL (0.6-4.6); Lymphocytes % 16.2 %; Mean Corpuscular HGB Conc 29.9 g/dL (31.6-35.5); Mean Corpuscular Hemoglobin 24.1 pg (28.0-33.3); Mean Corpuscular Volume 80.7 fL (83.0-100.0); Mean Platelet Volume 9.6 fL (9.4-12.4); Monocytes # 0.8 K/mcL (0.0-1.3); Monocytes % 8.1 %; Neutrophils # 6.7 K/mcL (1.6-8.9); Platelet Count 452 K/mcL (140-400); Red Blood Count 3.48 M/mcL (4.19-5.50); Red Cell Distribution Width 15.7 % (11.5-14.5); Segmented Neutrophils % 71.9 %; White Blood Count 9.3 K/mcL (4.3-11.1)
[2022-03-30 04:49] LABS: BUN/Creatinine Ratio 23 (6-26); Blood Urea Nitrogen 14 mg/dL (8-23); Calcium 7.7 mg/dL (8.6-10.3); Carbon Dioxide 26 mEq/L (23-29); Chloride 103 mEq/L (98-107); Glucose 127 mg/dL (70-105); Osmolality,Calculated 286 (280-300); Potassium 3.2 mEq/L (3.5-5.1); Sodium 137 mEq/L (136-145)
[2022-03-30] MEDS: *HR* Heparin 5,000 UNIT/ML VIAL SQ SCH ×2 (04:53→17:25)
[2022-03-30 05:04] LABS: Thyroid Stimulating Hormone 0.609 mcIU/mL (0.340-5.600)
[2022-03-30 05:20] LABS: Magnesium 1.9 mg/dL (1.6-2.6); Phosphorous 2.1 mg/dL (2.7-4.5)
[2022-03-30] MEDS: Pregabalin 75 MG CAPSULE PO SCH ×2 (08:55→20:57)
[2022-03-30] MEDS: Insulin LISPRO 300 UNITS/3 ML VIAL SUBQ SCH ×3 (08:55→17:02)
[2022-03-30] MEDS: Loratadine 10 MG TABLET PO SCH (08:55)
[2022-03-30] MEDS: metroNIDAZOLE 500 MG TABLET PO SCH ×3 (10:10→20:57)
[2022-03-30] MEDS: Metoprolol XL (24 HR) Succ 25 MG TAB.ER.24H PO SCH (10:10)
[2022-03-30] MEDS: lisinopriL 10 MG TABLET PO SCH (10:11)
[2022-03-30] MEDS: *HR* OxyCODONE Immed Rel 5 MG TABLET PO PRN ×4 (10:14→20:57)
[2022-03-30] MEDS: DAPTOmycin 500 MG in 0.9 % Sodium Chloride 100 ML IVPB SCH (10:57)
[2022-03-30] MEDS ORDERED: *HR* HYDROmorphone PF 0.5 MG/0.5 ML SYRINGE IVP PRN (12:20)
[2022-03-30] MEDS ORDERED: *HR* FentaNYL (PF) 100 MCG/2 ML VIAL ONE (13:42)
[2022-03-30] MEDS ORDERED: *HR* Propofol 200 MG/20 ML VIAL IVP ONE (13:42)
[2022-03-30] MEDS ORDERED: Lidocaine -MPF 2% 5 ML VIAL ONE (13:43)
[2022-03-30] MEDS ORDERED: Lidocaine HCL 4 ML Topical Solution (Laryng-O-Jet Kit Sterile Pak) TP ONE (13:43)
[2022-03-30] MEDS ORDERED: Ondansetron 4 MG/2 ML VIAL ONE (13:43)
[2022-03-30] MEDS ORDERED: *HR* Rocuronium Bromide 50 MG/5 ML VIAL ONE (13:43)
[2022-03-30] MEDS ORDERED: EPHEDrine 50 MG/ML VIAL ONE (14:46)
[2022-03-30] MEDS ORDERED: *HR* Phenylephrine 10 MG/ML VIAL ONE (14:46)
[2022-03-30] MEDS ORDERED: Sugammadex Sodium 200 MG/2 ML VIAL IV ONE ×2 (15:04→15:09)
[2022-03-30] MEDS ORDERED: Ringers Solution, Lactated 1,000 ML ONE (15:57)
[2022-03-30] MEDS ORDERED: diazePAM 5 MG TABLET PO PRN (16:25)
[2022-03-30] MEDS ORDERED: D5% in Water 1,000 ML IVC PRN (16:25)
[2022-03-30] MEDS ORDERED: Naloxone 0.4 MG/ML INJ IVP PRN (16:25)
[2022-03-30] MEDS ORDERED: *HR* Dextrose 50 % in Water (Syg) 50 ML SYRINGE IVP PRN (16:25)
[2022-03-30] MEDS ORDERED: Dextrose Gel 15 GM/37.5 ML TUBE PO PRN ×2 (16:25)
[2022-03-30] MEDS ORDERED: Ondansetron 4 MG/2 ML VIAL IVP PRN (16:25)
[2022-03-30 18:54] LABS: Folate 9.1 ng/mL (3.0-16.0)
[2022-03-30] MEDS: Insulin DETEMIR 100 UNIT/ML X5UNITS SUBQ SCH (20:58)
[2022-03-31] MEDS: Cefepime HCl 2,000 MG in 0.9 % Sodium Chloride Mini Bag 100 ML IVPB SCH ×2 (00:32→09:15)
[2022-03-31] MEDS: *HR* Heparin 5,000 UNIT/ML VIAL SQ SCH ×2 (06:31→16:48)
[2022-03-31] MEDS: *HR* OxyCODONE Immed Rel 5 MG TABLET PO PRN ×3 (06:31→16:47)
[2022-03-31] MEDS: Insulin LISPRO 300 UNITS/3 ML VIAL SUBQ SCH ×3 (09:14→18:36)
[2022-03-31] MEDS: metroNIDAZOLE 500 MG TABLET PO SCH ×3 (09:16→19:52)
[2022-03-31] MEDS: Loratadine 10 MG TABLET PO SCH (09:16)
[2022-03-31] MEDS: lisinopriL 10 MG TABLET PO SCH (09:16)
[2022-03-31] MEDS: Metoprolol XL (24 HR) Succ 25 MG TAB.ER.24H PO SCH (09:16)
[2022-03-31] MEDS: Pregabalin 75 MG CAPSULE PO SCH ×2 (09:18→19:52)
[2022-03-31] MEDS ORDERED: DAPTOmycin 500 MG in 0.9 % Sodium Chloride 100 ML IVPB SCH (10:00)
[2022-03-31 10:05] LABS: Basophils % 0.1 %; Eosinophils % 0.1 %; Hematocrit 28.1 % (37.5-50.1); Hemoglobin 8.4 g/dL (12.9-16.9); Immature Granulocytes % 0.6 % (0-4); Lymphocytes # 1.5 K/mcL (0.6-4.6); Lymphocytes % 10.6 %; Mean Corpuscular HGB Conc 29.9 g/dL (31.6-35.5); Mean Corpuscular Hemoglobin 23.9 pg (28.0-33.3); Mean Corpuscular Volume 80.1 fL (83.0-100.0); Mean Platelet Volume 9.6 fL (9.4-12.4); Monocytes % 7.2 %; Neutrophils # 11.7 K/mcL (1.6-8.9); Platelet Count 482 K/mcL (140-400); Red Blood Count 3.51 M/mcL (4.19-5.50); Segmented Neutrophils % 81.4 %
[2022-03-31 10:20] LABS: BUN/Creatinine Ratio 26 (6-26); Blood Urea Nitrogen 18 mg/dL (8-23); Calcium 8.1 mg/dL (8.6-10.3); Carbon Dioxide 26 mEq/L (23-29); Chloride 101 mEq/L (98-107); Potassium 3.9 mEq/L (3.5-5.1); Sodium 134 mEq/L (136-145)
[2022-03-31 10:21] LABS: White Blood Count 14.4 K/mcL (4.3-11.1)
[2022-03-31 11:10] LABS: Glucose 258 mg/dL (70-105); Osmolality,Calculated 289 (280-300)
[2022-03-31] MEDS ORDERED: metroNIDAZOLE 500 MG TABLET ONE (19:46)
[2022-03-31] MEDS ORDERED: Pregabalin 75 MG CAPSULE ONE (19:47)
[2022-03-31] MEDS: Insulin DETEMIR 100 UNIT/ML X5UNITS SUBQ SCH (19:53)
[2022-04-01] MEDS: *HR* Heparin 5,000 UNIT/ML VIAL SQ SCH ×2 (05:22→16:35)
[2022-04-01] MEDS: *HR* OxyCODONE Immed Rel 5 MG TABLET PO PRN ×3 (05:23→13:55)
[2022-04-01 06:38] LABS: Alanine Aminotransferase 8 Units/L (7-52); Albumin 2.7 g/dL (3.5-5.7); Albumin/Globulin Ratio 0.7 (1.1-2.2); Alkaline Phosphatase 64 Units/L (34-104); Aspartate Amino Transferase 12 Units/L (13-39); BUN/Creatinine Ratio 29 (6-26); Bilirubin,Total 0.4 mg/dL (0.3-1.0); Blood Urea Nitrogen 18 mg/dL (8-23); Calcium 7.8 mg/dL (8.6-10.3); Carbon Dioxide 28 mEq/L (23-29); Chloride 103 mEq/L (98-107); Globulin 3.8 g/dL (2.4-3.5); Glucose 99 mg/dL (70-105); Osmolality,Calculated 286 (280-300); Potassium 3.6 mEq/L (3.5-5.1); Sodium 137 mEq/L (136-145); Total Protein 6.5 g/dL (6.4-8.9)
[2022-04-01] MEDS: Metoprolol XL (24 HR) Succ 25 MG TAB.ER.24H PO SCH (09:42)
[2022-04-01] MEDS: lisinopriL 10 MG TABLET PO SCH (09:42)
[2022-04-01] MEDS: Pregabalin 75 MG CAPSULE PO SCH ×2 (09:43→20:42)
[2022-04-01] MEDS: Insulin LISPRO 300 UNITS/3 ML VIAL SUBQ SCH ×3 (09:44→16:34)
[2022-04-01] MEDS: Loratadine 10 MG TABLET PO SCH (09:44)
[2022-04-01] MEDS: Acetaminophen 325 MG TABLET PO PRN (12:06)
[2022-04-01] MEDS ORDERED: 0.9 % Sodium Chloride 500 ML IVC ONE (20:51)
[2022-04-01] MEDS: Insulin DETEMIR 100 UNIT/ML X5UNITS SUBQ SCH (20:54)
[2022-04-02 03:51] LABS: Hematocrit 25.4 % (37.5-50.1); Hemoglobin 7.4 g/dL (12.9-16.9); Mean Corpuscular HGB Conc 29.1 g/dL (31.6-35.5); Mean Corpuscular Volume 82.5 fL (83.0-100.0); Mean Platelet Volume 9.6 fL (9.4-12.4); Platelet Count 429 K/mcL (140-400); Red Blood Count 3.08 M/mcL (4.19-5.50); Red Cell Distribution Width 16.4 % (11.5-14.5); White Blood Count 10.2 K/mcL (4.3-11.1)
[2022-04-02] MEDS: *HR* OxyCODONE Immed Rel 5 MG TABLET PO PRN ×3 (04:59→19:33)
[2022-04-02] MEDS: *HR* Heparin 5,000 UNIT/ML VIAL SQ SCH ×2 (05:00→17:47)
[2022-04-02] MEDS: Insulin LISPRO 300 UNITS/3 ML VIAL SUBQ SCH ×3 (08:52→17:47)
[2022-04-02] MEDS: Pregabalin 75 MG CAPSULE PO SCH ×2 (08:53→19:33)
[2022-04-02] MEDS: Loratadine 10 MG TABLET PO SCH (08:53)
[2022-04-02] MEDS: Metoprolol XL (24 HR) Succ 25 MG TAB.ER.24H PO SCH (08:53)
[2022-04-02] MEDS: lisinopriL 10 MG TABLET PO SCH (08:54)
[2022-04-02 11:03] LABS: Hematocrit 27.3 % (37.5-50.1); Hemoglobin 8.1 g/dL (12.9-16.9); Mean Corpuscular HGB Conc 29.7 g/dL (31.6-35.5); Mean Corpuscular Hemoglobin 24.2 pg (28.0-33.3); Mean Corpuscular Volume 81.5 fL (83.0-100.0); Mean Platelet Volume 9.5 fL (9.4-12.4); Platelet Count 433 K/mcL (140-400); Red Blood Count 3.35 M/mcL (4.19-5.50); Red Cell Distribution Width 16.4 % (11.5-14.5); White Blood Count 10.2 K/mcL (4.3-11.1)
[2022-04-02] MEDS: Acetaminophen 325 MG TABLET PO PRN (11:28)
[2022-04-02] MEDS ORDERED: Ondansetron ODT 4 MG TAB.RAPDIS SL PRN (12:00)
[2022-04-02] MEDS: Insulin DETEMIR 100 UNIT/ML X5UNITS SUBQ SCH (20:27)
[2022-04-03] MEDS: *HR* Heparin 5,000 UNIT/ML VIAL SQ SCH ×2 (05:43→17:23)
[2022-04-03] MEDS: *HR* OxyCODONE Immed Rel 5 MG TABLET PO PRN ×3 (07:40→19:52)
[2022-04-03] MEDS: Metoprolol XL (24 HR) Succ 25 MG TAB.ER.24H PO SCH (08:48)
[2022-04-03] MEDS: Loratadine 10 MG TABLET PO SCH (08:48)
[2022-04-03] MEDS: lisinopriL 10 MG TABLET PO SCH (08:48)
[2022-04-03] MEDS: Pregabalin 75 MG CAPSULE PO SCH ×2 (08:48→19:52)
[2022-04-03] MEDS: Insulin LISPRO 300 UNITS/3 ML VIAL SUBQ SCH ×3 (08:51→17:22)
[2022-04-03 09:34] LABS: Hemoglobin 9.8 g/dL (12.9-16.9); Mean Corpuscular HGB Conc 29.7 g/dL (31.6-35.5); Mean Corpuscular Hemoglobin 24.1 pg (28.0-33.3); Mean Corpuscular Volume 81.3 fL (83.0-100.0); Mean Platelet Volume 9.2 fL (9.4-12.4); Platelet Count 411 K/mcL (140-400); Red Blood Count 4.06 M/mcL (4.19-5.50); Red Cell Distribution Width 16.4 % (11.5-14.5)
[2022-04-03 10:06] LABS: BUN/Creatinine Ratio 19 (6-26); Blood Urea Nitrogen 12 mg/dL (8-23); Calcium 8.3 mg/dL (8.6-10.3); Carbon Dioxide 25 mEq/L (23-29); Chloride 100 mEq/L (98-107); Glucose 194 mg/dL (70-105); Osmolality,Calculated 281 (280-300); Potassium 4.1 mEq/L (3.5-5.1); Sodium 133 mEq/L (136-145)
[2022-04-03] MEDS: Acetaminophen 325 MG TABLET PO PRN (11:40)
[2022-04-03] MEDS: Insulin DETEMIR 100 UNIT/ML X5UNITS SUBQ SCH (19:53)
[2022-04-04] MEDS: *HR* Heparin 5,000 UNIT/ML VIAL SQ SCH ×2 (05:01→17:52)
[2022-04-04] MEDS: *HR* OxyCODONE Immed Rel 5 MG TABLET PO PRN ×3 (05:01→18:37)
[2022-04-04 08:36] LABS: Hematocrit 29.4 % (37.5-50.1); Hemoglobin 8.8 g/dL (12.9-16.9); Mean Corpuscular HGB Conc 29.9 g/dL (31.6-35.5); Mean Corpuscular Hemoglobin 24.5 pg (28.0-33.3); Mean Corpuscular Volume 81.9 fL (83.0-100.0); Mean Platelet Volume 9.2 fL (9.4-12.4); Platelet Count 402 K/mcL (140-400); Red Blood Count 3.59 M/mcL (4.19-5.50); Red Cell Distribution Width 16.8 % (11.5-14.5); White Blood Count 7.5 K/mcL (4.3-11.1)
[2022-04-04] MEDS: Insulin LISPRO 300 UNITS/3 ML VIAL SUBQ SCH ×3 (08:48→17:53)
[2022-04-04] MEDS: Metoprolol XL (24 HR) Succ 25 MG TAB.ER.24H PO SCH (08:55)
[2022-04-04] MEDS: Loratadine 10 MG TABLET PO SCH (08:55)
[2022-04-04] MEDS: Pregabalin 75 MG CAPSULE PO SCH ×2 (08:55→21:01)
[2022-04-04] MEDS: lisinopriL 10 MG TABLET PO SCH (08:55)
[2022-04-04 08:59] LABS: BUN/Creatinine Ratio 26 (6-26); Blood Urea Nitrogen 16 mg/dL (8-23); Calcium 8.3 mg/dL (8.6-10.3); Carbon Dioxide 30 mEq/L (23-29); Chloride 100 mEq/L (98-107); Glucose 115 mg/dL (70-105); Osmolality,Calculated 280 (280-300); Potassium 4.1 mEq/L (3.5-5.1); Sodium 134 mEq/L (136-145)
[2022-04-04] MEDS: Insulin DETEMIR 100 UNIT/ML X5UNITS SUBQ SCH (21:01)
[2022-04-05] MEDS: *HR* Heparin 5,000 UNIT/ML VIAL SQ SCH ×2 (06:29→17:13)
[2022-04-05] MEDS: Loratadine 10 MG TABLET PO SCH (09:16)
[2022-04-05] MEDS: Metoprolol XL (24 HR) Succ 25 MG TAB.ER.24H PO SCH (09:16)
[2022-04-05] MEDS: Insulin LISPRO 300 UNITS/3 ML VIAL SUBQ SCH ×3 (09:16→17:14)
[2022-04-05] MEDS: Pregabalin 75 MG CAPSULE PO SCH ×2 (09:16→19:59)
[2022-04-05] MEDS: lisinopriL 10 MG TABLET PO SCH (09:16)
[2022-04-05] MEDS: *HR* OxyCODONE Immed Rel 5 MG TABLET PO PRN ×3 (09:23→19:59)
[2022-04-05] MEDS ORDERED: polyethylene glycoL 3350 17 GM POWD.PACK PO PRN (14:55)
[2022-04-05] MEDS: Sennosides/Docusate Sodium TABLET PO SCH ×2 (17:13→19:59)
[2022-04-05] MEDS: Insulin DETEMIR 100 UNIT/ML X5UNITS SUBQ SCH (19:59)
[2022-04-06] MEDS: *HR* Heparin 5,000 UNIT/ML VIAL SQ SCH ×2 (06:29→17:00)
[2022-04-06] MEDS: lisinopriL 10 MG TABLET PO SCH (08:43)
[2022-04-06] MEDS: Sennosides/Docusate Sodium TABLET PO SCH ×2 (08:43→21:20)
[2022-04-06] MEDS: Pregabalin 75 MG CAPSULE PO SCH ×2 (08:43→21:20)
[2022-04-06] MEDS: Metoprolol XL (24 HR) Succ 25 MG TAB.ER.24H PO SCH (08:43)
[2022-04-06] MEDS: Loratadine 10 MG TABLET PO SCH (08:43)
[2022-04-06] MEDS: Insulin LISPRO 300 UNITS/3 ML VIAL SUBQ SCH ×4 (08:44→17:02)
[2022-04-06] MEDS: *HR* OxyCODONE Immed Rel 5 MG TABLET PO PRN ×3 (08:57→21:20)
[2022-04-06] MEDS: Insulin DETEMIR 100 UNIT/ML X5UNITS SUBQ SCH (21:20)
[2022-04-07] MEDS: *HR* Heparin 5,000 UNIT/ML VIAL SQ SCH ×2 (06:30→17:32)
[2022-04-07] MEDS: Insulin LISPRO 300 UNITS/3 ML VIAL SUBQ SCH ×3 (07:45→17:33)
[2022-04-07] MEDS: Sennosides/Docusate Sodium TABLET PO SCH (08:40)
[2022-04-07] MEDS: *HR* OxyCODONE Immed Rel 5 MG TABLET PO PRN ×2 (08:40→14:08)
[2022-04-07] MEDS: lisinopriL 10 MG TABLET PO SCH (08:41)
[2022-04-07] MEDS: Metoprolol XL (24 HR) Succ 25 MG TAB.ER.24H PO SCH (08:41)
[2022-04-07] MEDS: Pregabalin 75 MG CAPSULE PO SCH (08:41)
[2022-04-07] MEDS: Loratadine 10 MG TABLET PO SCH (08:41)
[2022-04-07 15:25] LABS: Influenza A PCR Negative (Negative); Influenza B PCR Negative (Negative); Resp. Syncytial Virus PCR Negative (Negative)
[2022-04-07 15:43] LABS: SARS-CoV-2 by PCR (In House) Negative (Negative)
[2022-04-07 15:47] VITALS: BP 120/65; PULSE 71; TEMP 97.2; O2SAT 97
== END 2022-04-07 19:30 | DRG 854 ==
LOC: 3NENU 09:57 → 4WAOSI 09:57 → EMEROOARM 09:57 → SUATTDRO 13:24 → 3NENU 15:52 → SUATTDRO 03-23 14:22
PROVIDERS: ADMIT Internal Medicine; ATTEND Internal Medicine